=== PATIENT | male | born 1950 | race Caucasian/White ===

== ENCOUNTER → 2017-06-17 | Outpatient (CLI) | payer MEDICARE | LOC: RT 15:19 | DX: R00.2 Palpitations (principal) ==

== ENCOUNTER → 2017-07-22 | Outpatient (CLI) | payer MEDICARE ==
[~2017-07-22] MED LIST: ACTOS15 MG PO; ATENOLOL50 MG PO; DIOVAN320 MG PO; HCTZ/TRIAMTEREN1 CAP PO; MICRO-K 10 MEQ10 MEQ PO; MILK THISTLE200 MG PO; SAM-E200 MG PO; VITAMIN E 400400 IU PO
== END ==
LOC: RT 08:26
DX: I48.91 Unspecified atrial fibrillation (principal)